=== PATIENT | male | born 1935 | race Caucasian/White ===

== ENCOUNTER → 2017-01-01 | Outpatient (CLI) | payer MEDICARE ==
[~2017-01-01] MED LIST: ASP325T; ASP325TEC PO; ASPI325T32 PO; FISH12002 PO; GLUCO/CHON; IBUP800T26 PO; LEVO150T6 PO; LVT.025T; METO50TA7 PO; NITR0.4T SL; NITROQUICK; OMEG1CAP51 PO; OMEP-10 PO; OMG1KC; RANO10003 PO; RMP2.5C PO; SIMV40TA2 PO; TMSL.4C PO
--- NOTE | 2017-01-01 14:35 | Diagnostic Imaging Report ---
PROCEDURE: MRI lumbar spine. TECHNIQUE: Multiplanar, multisequence MRI of the lumbar spine was performed without contrast. INDICATION: Lifting injury, pain. FINDINGS: Extending outside the pxrnl-ps-vzit is aneurysmal dilatation anteriorly of the lower infrarenal abdominal aorta. It cannot be measured with accuracy owing to on a technical basis. It is at least 4.3 cm however and warrants further characterization with abdominopelvic CT. No paravertebral mass, hemorrhage, or fluid collection. Conus appeared normal. Lumbar vertebral body heights are maintained and their alignment is anatomic. T12-L1: There is some partial endplate ankylosis without disc displacement. The canal, foramina, and lateral recess are patent. L1-L2: Anterior osteophyte disc material is present. There is slight thickening of the ligamentum flavum and mild facet arthrosis. No substantial degree of canal, foraminal, or recess stenosis, however. L2-L3: Disc bulge and endplate osteophytes anterior greater than posterior present with slight thickening of the ligamentum flavum and facet arthrosis. There is no substantial canal, foraminal, or recess stenosis, however. L3-L4: The disc is adequately hydrated and maintains a normal stature and is nondisplaced. There is however hypertrophic facet arthrosis and buckled thickening of the ligamentum flavum and on the basis of the posterior element hypertrophy, there is a moderate severity of central canal stenosis. There is no significant foraminal encroachment. L4-L5: Diffuse bulging disc material is present. In addition, midline protrusion indents the ventral thecal sac and in conjunction with thickening of the ligamentum flavum and facet arthrosis, result in a agisqsdu-gc-ibvgnq degree of central canal stenosis with djlx-yi-qvggoxum degrees of left greater than right L5 lateral recess stenoses. There is moderate left and moderate right foraminal narrowing. L5-S1: Bulky hypertrophic facet arthrosis results in mild left greater than right foraminal narrowing but no substantial canal stenosis. IMPRESSION: 1. Multilevel degenerative changes to the discs, endplates, and posterior elements result in multilevel kjkd-vc-mukzlfcw degrees of canal and foraminal stenoses as listed level by level above, most notably at L3-L4 and L4-L5. 2. Normal alignment with no acute osseous pathology. 3. There is an apparent anterior aneurysmal dilatation of the lower abdominal aorta extending outside the fonok-ac-dovh warranting more accurate anatomical characterization with CT. Dictated by: Dictated on workstation # [id number]
== END ==
LOC: RAD 13:17
PROVIDERS: ATTEND Nurse Practitioner Family
DX: M48.06 Spinal stenosis, lumbar region (principal); M47.816 Spondylosis without myelopathy or radiculopathy, lumbar region
CPT/HCPCS: 72148

== ENCOUNTER → 2017-01-18 | Outpatient (CLI) | payer MEDICARE ==
[~2017-01-18] MED LIST changes: +CATHETER FLUSH 10 ML SYR IV PRN; +IOHEXOL 350 MG/ML 100 ML (OMNIPAQUE 350) VIAL IV ONE; +NS 100 ML (IVPB) BAG IV ONE
[2017-01-18 11:23] LABS: CREATININE SERUM 1.5 MG/DL (0.60-1.30)
--- NOTE | 2017-01-18 12:28 | Diagnostic Imaging Report ---
CT angiogram of the abdomen. INDICATION: Dilated abdominal aorta. 60 mL of Omnipaque 350 is administered intravenously. Coronal and sagittal MIP reconstruction images are performed. FINDINGS: The abdomen aorta demonstrates an infrarenal aneurysm measuring 3.9 cm in caliber. There is intramural thrombus with patent lumen. The common iliac arteries are ectatic with mild aneurysmal dilatation in the distal right common iliac artery up to 1.7 cm in caliber. A 1.5-cm ectasia of the distal left common iliac artery is seen. There is no periaortic significantly enlarged lymph node. The celiac trunk and the SMA are patent. The renal arteries demonstrate atherosclerotic plaque bilaterally with estimated 50% stenosis on the right side and less than 40% stenosis on the left. The inferior mesenteric artery is opacified. Its origin is difficult to evaluate. The lung bases appear unremarkable. The liver, the gallbladder, and the right adrenal gland appear unremarkable. The left adrenal gland demonstrates an 8?mm low-density lesion which could be related to a tiny adenoma or myelolipoma. The gallbladder demonstrate small calcified stones. There is a stone also seen in the neck of the gallbladder. No evidence of cholecystitis is seen. The kidneys have symmetric enhancement. No hydronephrosis. The osseous structures demonstrate degenerative changes with multilevel anterior osteophytes. Facet hypertrophy in the mid and lower lumbar spine. Also fusion of the SI joints noted. IMPRESSION: 1. 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 2. 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 3. Multiple small gallstones. No evidence of cholecystitis. Dictated by: Dictated on workstation # [id number]
== END | disposition home or self-care (01) ==
LOC: RAD 10:50
PROVIDERS: ATTEND Nurse Practitioner Family
DX: I71.4 Abdominal aortic aneurysm, without rupture (principal); I72.3 Aneurysm of iliac artery; K80.80 Other cholelithiasis without obstruction
CPT/HCPCS: 36415; 74174; 82565; 84520

== ENCOUNTER → 2018-10-25 | Outpatient (CLI) | payer MEDICARE ==
[~2018-10-25] MED LIST changes: -CATHETER FLUSH 10 ML SYR IV PRN; +HOLD METFORMIN - RECEIVED CONTRAST 20 ML VIAL IV SCH; -NS 100 ML (IVPB) BAG IV ONE
--- NOTE | 2018-10-25 09:52 | Diagnostic Imaging Report ---
INDICATION: Abdominal aorta aneurysm. Comparison made with prior examination from 01/18/2017. TECHNIQUE: Multiple contiguous axial images were obtained through the abdomen and pelvis after the uneventful bolus administration of intravenous contrast. Sagittal coronal and MIP reconstructions were performed. FINDINGS: The heart size is normal. There is minimal atelectasis and/or pneumonitis in the left lung base. The liver is normal in size without focal lesions. There is cholelithiasis. There is no biliary ductal dilatation. Spleen is normal. The pancreas and adrenal glands are unremarkable. There is a 1.2 cm left renal cyst. Right kidney is normal in appearance. The abdominal aorta is normal in caliber at the level of the renal arteries. There is an infrarenal abdominal aortic aneurysm now measuring 4.3 cm. This is compared with previous measurement 3.9 cm. There is a moderate amount of surrounding mural thrombus. This tapers to a normal caliber at just above the aortic bifurcation. Right common iliac artery measures 1.9 cm. The bowel gas pattern is nonspecific. There is no free air. There is no ascites. There are no focal inflammatory changes. There are moderate degenerative changes in the spine. IMPRESSION: Cholelithiasis. Interval increase in size of the inferior abdominal aortic aneurysm which now measures 4.3 cm compared to previous measurement 3.9 cm. There is a moderate amount of mural thrombus. There is also enlargement in the right common iliac artery up to 1.9 cm. Dictated by: Dictated on workstation # [id number]
== END ==
LOC: RAD 08:16
PROVIDERS: ATTEND Family Medicine
DX: I71.4 Abdominal aortic aneurysm, without rupture (principal); K80.20 Calculus of gallbladder without cholecystitis without obstruction
CPT/HCPCS: 74175

== ENCOUNTER → 2020-05-14 | Outpatient (CLI) | payer MEDICARE ==
[~2020-05-14] MED LIST changes: +NS 100 ML (IVPB) BAG IV ONE
[2020-05-14 12:16] LABS: CREATININE SERUM 1.37 MG/DL (0.60-1.30)
--- NOTE | 2020-05-14 12:55 | Diagnostic Imaging Report ---
EXAMINATION: CT angiography of the abdomen. TECHNIQUE: After intravenous administration of contrast, thin section axial CT angiography of the abdomen and were obtained. 3D MIP reformats were provided. All CT scans use one or more of the following dose optimizing techniques: automated exposure control, MA and/or KvP adjustment based on a patient size and exam type, or iterative reconstruction. HISTORY: Abdominal aortic aneurysm COMPARISON: 10/25/2018 FINDINGS: There is no abdominal aortic aneurysm which measures 5.0 x 4.6 cm, previously 4.8 x 4.4 cm. There is extensive mural thrombus. There is dilation of the right common iliac artery measuring 18 mm. 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 Limited views of the lower thorax are unremarkable. The liver is normal without focal lesion. There is no biliary ductal dilation. Gallbladder contains small stones. Pancreas is normal. Spleen is normal. Adrenal glands are normal. Simple cyst is seen in left kidney. No suspicious renal lesions are seen. There is no hydronephrosis. Visualized bowel is normal in caliber without obstruction or inflammation. Small focus of epiploic appendagitis is seen associated with the ascending colon, unchanged from prior exam. No free fluid or air. No abdominal lymphadenopathy. There are no suspicious osseus lesions. IMPRESSION: 1. Continued mild increase in size of the abdominal aortic aneurysm with an increase in 2 mm in both dimensions measuring 5.0 x 4.6 cm. Dictated by: Dictated on workstation # [id number]
== END ==
LOC: RAD 11:25
PROVIDERS: ATTEND Physician Assistant
DX: I71.4 Abdominal aortic aneurysm, without rupture (principal); I25.10 Atherosclerotic heart disease of native coronary artery without angina pectoris; I10 Essential (primary) hypertension; E78.5 Hyperlipidemia, unspecified
CPT/HCPCS: 36415; 74175; 82565; 84520; 93306

== ENCOUNTER → 2020-07-16 | Outpatient (CLI) | payer MEDICARE ==
[~2020-07-16] MED LIST changes: +CATHETER FLUSH 10 ML SYR IV PRN; -HOLD METFORMIN - RECEIVED CONTRAST 20 ML VIAL IV SCH; -IOHEXOL 350 MG/ML 100 ML (OMNIPAQUE 350) VIAL IV ONE; -NS 100 ML (IVPB) BAG IV ONE
--- NOTE | 2020-07-16 12:46 | Diagnostic Imaging Report ---
PROCEDURE: CT abdomen and pelvis without contrast. TECHNIQUE: Multiple contiguous axial images were obtained through the abdomen and pelvis without the use of intravenous contrast. Auto Exposure Controls were utilized during the CT exam to meet ALARA standards for radiation dose reduction. INDICATION: Prostate CA, pelvic pain. FINDINGS: The previous CTA abdomen exam of 01/18/2017 and the subsequent CTA abdomen exam of 05/14/2020 noted that there was an AneuRx stent graft in place. The graft is again evident on this study and seems to be stable in position. The [place] aneurysm of the aorta noted on the prior exam of 05/24/2020 measured 5.0 x 4.6 cm. On this exam, the [place] aneurysm now measures 5.0 x 4.5 mm. There is no periaortic fluid collection to suggest an acute abnormality. The pelvis was not included in its entirety on the prior study. Specifically, the prostate gland was not visualized. The prostate gland is enlarged measuring 6.4 cm in maximum transverse diameter (normal 5 cm or less). The urinary bladder is grossly unremarkable. There are few diverticula in the sigmoid colon, but there is no evidence for acute diverticulitis. The appendix was visualized and is not abnormally thickened. There is no pelvic mass or free fluid collection noted. The liver, spleen, pancreas, adrenals, kidneys and inferior vena cava are unchanged when compared to the prior exam. As on the previous study, there are a few small gallstones within the gallbladder, but there is no evidence for acute cholecystitis. Stomach is not well-distended and consequently difficult to assess. The lung bases are generally clear. The bone windows show no sign of a fracture or of a destructive lesion. IMPRESSION: 1. There is no acute abnormality of the abdomen or pelvis. 2. The aortic stent graft seen previously is again evident and seems to be stable in position. The [place] aneurysm of the aorta also seems stable when compared to the prior exam. 3. The prostate gland is enlarged. 4. There is diverticulosis of the sigmoid colon without evidence for acute diverticulitis. 5. There is cholelithiasis, but there is no sign of acute cholecystitis. Dictated by: Dictated on workstation # [id number]
--- NOTE | 2020-07-16 16:07 | Diagnostic Imaging Report ---
Whole body bone scan at 2:33 PM INDICATION: Prostate CA This study was performed following the administration of 26.8 mCi of 99m Technetium MDP. Anterior and posterior whole-body images were obtained as well as spot films of the thorax in the lateral projections. COMPARISON: There are no prior nuclear medicine studies available for comparison. There is an intense area of increased uptake involving the anterolateral aspect of what appears to be the right 7th rib. In reviewing the CT abdomen/pelvis exam performed earlier today there is the suggestion of a healing nondisplaced fracture in this region. Consequently, I suspect the abnormal uptake is post traumatic in nature as opposed to metastatic disease. There is no other abnormal uptake to suggest metastatic disease or an acute abnormality. There is generalized activity involving the shoulder, hip, knee and ankle joints. Most likely this is due to degenerative disease. There is excretion of the radiotracer by both kidneys. IMPRESSION: 1. The isolated area of increased uptake involving the anterolateral aspect of the right 7th rib is most likely due to prior trauma. Clinical follow-up is recommended. 2. There is no abnormal uptake to suggest metastatic disease. Dictated by: Dictated on workstation # [id number]
== END ==
LOC: CARD 11:44
PROVIDERS: ATTEND Urology
DX: C61 Malignant neoplasm of prostate (principal); I71.9 Aortic aneurysm of unspecified site, without rupture; N40.0 Benign prostatic hyperplasia without lower urinary tract symptoms; K57.30 Diverticulosis of large intestine without perforation or abscess without bleeding; K80.20 Calculus of gallbladder without cholecystitis without obstruction; Z95.828 Presence of other vascular implants and grafts
CPT/HCPCS: 74176; 78306; A9503

== ENCOUNTER → 2021-06-18 | Outpatient (CLI) | payer MEDICARE ==
[~2021-06-18] MED LIST changes: +HOLD METFORMIN - RECEIVED CONTRAST 20 ML VIAL IV SCH; +IOHEXOL 350 MG/ML 100 ML (OMNIPAQUE 350) VIAL IV ONE; +NS 100 ML (IVPB) BAG IV ONE
[2021-06-18 09:24] LABS: CREATININE SERUM 1.29 MG/DL (0.60-1.30)
--- NOTE | 2021-06-18 10:10 | Diagnostic Imaging Report ---
PROCEDURE: CT Angio Abdomen/Pelvis with. TECHNIQUE: Multiple contiguous axial images were obtained through the abdomen and pelvis after the uneventful bolus administration of intravenous contrast. Sagittal and coronal MIP reconstructions with then performed. All CT scans use one or more of the following dose optimizing techniques: automated exposure control, MA and/or KvP adjustment based on patient size and exam type or iterative reconstruction. INDICATION: Abdominal aortic aneurysm, status post endograft repair in June 2020. Study is performed for follow-up. Correlation is made with prior CT from 07/16/2020. Imaging through lung bases show some linear scarring or atelectasis in the lingula and left lower lobe. The liver is unremarkable. No focal masses detected. There are small stones layering within the gallbladder. No biliary duct dilatation is identified. The pancreas and spleen are unremarkable. No adrenal masses detected. Left kidney does contain a small cortical low-attenuation lesion in the upper pole 13 mm in size. This appears stable and is most consistent with cysts. There is no hydronephrosis. There is an abdominal aortic aneurysm containing a stent graft. The excluded aneurysm sac dimensions are 4.7 cm AP by 4.9 cm transverse, stable when compared with prior study from July 2020. Both limbs of the graft appear to be patent. No endoleak is identified. No perianeurysmal fluid collection is identified to indicate leakage or rupture. The small and large bowel loops are of normal caliber. Occasional diverticula within the sigmoid are noted. There is no evidence of acute diverticulitis. There is no free fluid or fluid collection. The bladder is unremarkable. Prostate is enlarged. The bony structures are nonacute. IMPRESSION: 1. Stable abdominal aortic aneurysms treated with an aortic stent graft. Excluded aneurysm sac dimensions are stable. There is no evidence of endoleak. 2. Cholelithiasis. 3. Uncomplicated diverticulosis. 4. Prostatomegaly. Dictated by: Dictated on workstation # [id number]
== END ==
LOC: RAD 09:45
PROVIDERS: ATTEND Physician Assistant
DX: I71.4 Abdominal aortic aneurysm, without rupture (principal); K80.20 Calculus of gallbladder without cholecystitis without obstruction; K57.30 Diverticulosis of large intestine without perforation or abscess without bleeding; N40.0 Benign prostatic hyperplasia without lower urinary tract symptoms; Z95.828 Presence of other vascular implants and grafts
CPT/HCPCS: 36415; 74174; 82565; 84520